=== PATIENT | female | born 2000 | race Caucasian/White ===

== ENCOUNTER 2019-02-07 13:53 | Inpatient (IN) | payer OTHER ==
[~2019-02-07] VITALS: Ht 157.5 cm; Wt 57.7 kg
[2019-02-07 14:58] LABS: BASOPHILS % (AUTO) 0.5 % (0.0-2.0); EOSINOPHILS % (AUTO) 0.8 % (1.0-6.0); HEMATOCRIT 39.8 % (36-46); HEMOGLOBIN 13.3 g/dL (12.0-16.0); LYMPHOCYTES # (AUTO) 1.7 K/uL (1.0-4.8); MEAN CORPUSCULAR HEMOGLOBIN 31.2 pg (26.0-34.0); MEAN CORPUSCULAR HGB CONC 33.5 G/dL (31.0-37.0); MEAN CORPUSCULAR VOLUME 93 fL (80-100); MONOCYTES # (AUTO) 0.4 K/uL (0.1-1.0); NEUTROPHILS # (AUTO) 4.1 K/uL (1.8-7.7); NEUTROPHILS % (AUTO) 64.7 % (40.0-70.0); PLATELET COUNT (AUTO) 198 K/uL (150-450); RED BLOOD CELL COUNT(AUTO) 4.27 MIL/uL (4.00-5.20); RED CELL DISTRIBUTION WIDTH 12.9 % (11.5-14.5)
[2019-02-07 15:12] LABS: ANION GAP 4 mmol/L (8-16); CALCIUM, TOTAL 9.1 mg/dL (8.8-10.5); CARBON DIOXIDE 32 mmol/L (22-29); CHLORIDE 105 mmol/L (98-107); GLOMERULAR FILTR. RATE CALC > 60 mL/min (>60); GLUCOSE,RANDOM 94 mg/dL (70-110); POTASSIUM 4.1 mmol/L (3.5-5.1); SODIUM SERUM 141 mmol/L (136-145); UREA NITROGEN, BLOOD 6 mg/dL (7-18)
[2019-02-07 15:16] LABS: ALANINE AMINOTRANSFERASE 15 U/L (12-78); ALKALINE PHOSPHATASE 66 U/L (46-116); ASPARTATE AMINOTRANSFERASE 17 U/L (15-37); BILIRUBIN,TOTAL 0.3 mg/dL (0.1-1.0); TOTAL PROTEIN, SERUM 7.7 g/dL (6.4-8.2)
[2019-02-07] MEDS ORDERED: GuaiFENesin/D-METHORPHAN [SUGAR-FREE] 200-20MG/10 ML SYRUP UDCUP PO PRN (16:15)
[2019-02-07] MEDS ORDERED: ACETAMINOPHEN 325 MG TABLET PO PRN (16:15)
[2019-02-07] MEDS ORDERED: ONDANSETRON HCL 4 MG TABLET PO PRN (16:15)
[2019-02-07] MEDS ORDERED: LOPERAMIDE HCL 2 MG CAPSULE PO PRN (16:15)
[2019-02-07] MEDS ORDERED: NICOTINE 14 MG/24 HOUR PATCH TD PRN (16:15)
[2019-02-07] MEDS ORDERED: PETROLATUM,WHITE 28 GM JELLY TP PRN (16:15)
[2019-02-07] MEDS ORDERED: CloNIDine HCL 0.1 MG TABLET PO PRN (16:15)
[2019-02-07] MEDS ORDERED: ALBUTEROL SULFATE HFA 90 MCG/PUFF 8 GM INHALER IH PRN (16:15)
[2019-02-07] MEDS ORDERED: MAG HYDROX/AL HYDROX/SIMETH ES 30 ML SUSPENSION UDCUP PO PRN (16:15)
[2019-02-07] MEDS ORDERED: IBUPROFEN 400 MG TABLET PO PRN (16:15)
[2019-02-07] MEDS ORDERED: MAGNESIUM HYDROXIDE SUSPENSION 30 ML UDCUP PO PRN (16:15)
[2019-02-07] MEDS ORDERED: DOCUSATE SODIUM 100 MG CAPSULE PO PRN (16:15)
[2019-02-07 18:35] VITALS: BP 116/75
[2019-02-07 19:36] VITALS: BP 112/67
[2019-02-07 22:46] LABS: AMPHET/METH SCREEN,URINE NEGATIVE (NEGATIVE); BARBITURATE SCREEN, URINE NEGATIVE (NEGATIVE); BENZODIAZEPINES SCREEN,URINE NEGATIVE (NEGATIVE); CANNABINOID SCREEN,URINE NEGATIVE (NEGATIVE); COCAINE SCREEN,URINE NEGATIVE (NEGATIVE); METHADONE SCREEN, URINE NEGATIVE (NEGATIVE); OPIATE SCREEN,URINE NEGATIVE (NEGATIVE)
[2019-02-07 22:47] LABS: PHENCYCLIDINE SCREEN,URINE NEGATIVE (NEGATIVE)
[2019-02-07 23:55] VITALS: BP 108/52
[2019-02-08 05:14] VITALS: BP 96/57
[2019-02-08 08:21] VITALS: BP 100/65
[2019-02-08] MEDS: SERTRALINE HCL 50 MG TABLET PO SCH (10:12)
[2019-02-08 11:28] VITALS: BP 109/62
[2019-02-08] MEDS: HydrOXYzine PAMOATE 25 MG CAPSULE PO PRN ×2 (12:38→21:59)
[2019-02-08 16:08] VITALS: BP 108/60
[2019-02-08 19:45] VITALS: BP 104/62
[2019-02-08 23:00] VITALS: BP 112/68
[2019-02-09 05:01] VITALS: BP 107/63
[2019-02-09] MEDS: SERTRALINE HCL 50 MG TABLET PO SCH (07:56)
[2019-02-09 08:27] VITALS: BP 110/63
[2019-02-09] MEDS ORDERED: SERTRALINE HCL 50 MG TABLET PO SCH (09:00)
[2019-02-09] MEDS: HydrOXYzine PAMOATE 25 MG CAPSULE PO PRN ×2 (09:43→20:08)
[2019-02-09] MEDS ORDERED: SERTRALINE HCL 50 MG TABLET PO ONE (10:15)
[2019-02-09 11:31] VITALS: BP 102/56
[2019-02-09 15:21] VITALS: BP 104/57
[2019-02-09 20:07] VITALS: BP 114/62
[2019-02-09 23:43] VITALS: BP 117/61
[2019-02-10 05:27] VITALS: BP 100/62
[2019-02-10] MEDS: SERTRALINE HCL 50 MG TABLET PO SCH (08:39)
[2019-02-10 09:03] VITALS: BP 113/69
[2019-02-10 11:19] VITALS: BP 115/68
[2019-02-10] MEDS: HydrOXYzine PAMOATE 25 MG CAPSULE PO PRN (12:09)
[2019-02-10 15:05] VITALS: BP 108/64
[2019-02-10 19:42] VITALS: BP 119/72
[2019-02-10 23:56] VITALS: BP 109/70
[2019-02-11 04:35] VITALS: BP 107/58
[2019-02-11 08:02] VITALS: BP 114/71
[2019-02-11] MEDS: SERTRALINE HCL 50 MG TABLET PO SCH (08:59)
[2019-02-11 12:59] VITALS: BP 113/58
[2019-02-11 15:31] VITALS: BP 99/55
[2019-02-11 19:42] VITALS: BP 122/61
[2019-02-11 23:34] VITALS: BP 122/73
[2019-02-12 04:45] VITALS: BP 120/71
[2019-02-12 07:45] VITALS: BP 111/58
[2019-02-12] MEDS: SERTRALINE HCL 50 MG TABLET PO SCH (08:21)
[2019-02-12] MEDS: HydrOXYzine PAMOATE 25 MG CAPSULE PO PRN ×2 (08:30→20:45)
[2019-02-12 11:11] VITALS: BP 107/66
[2019-02-12 15:20] VITALS: BP 106/63
[2019-02-12 20:52] VITALS: BP 107/65
[2019-02-13] VITALS (7 sets, daily range): BP systolic 107–115; BP diastolic 56–75
[2019-02-13] MEDS: SERTRALINE HCL 50 MG TABLET PO SCH (08:30)
[2019-02-13] MEDS: HydrOXYzine PAMOATE 25 MG CAPSULE PO PRN (08:33)
[2019-02-14 04:46] VITALS: BP 101/66
[2019-02-14 08:04] VITALS: BP 101/59
[2019-02-14] MEDS: SERTRALINE HCL 50 MG TABLET PO SCH (08:24)
[2019-02-14] MEDS: HydrOXYzine PAMOATE 25 MG CAPSULE PO PRN (08:32)
[2019-02-14] MEDS ORDERED: SERT50TA12 PO (10:30)
[2019-02-14 11:50] VITALS: BP 97/68
== END 2019-02-14 16:28 | DRG 885 ==
LOC: EMS 13:55 → 6S 16:36
PROVIDERS: ADMIT Internal Medicine; ATTEND Internal Medicine
DX: F33.2 Major depressive disorder, recurrent severe without psychotic features (principal); R45.851 Suicidal ideations; F17.210 Nicotine dependence, cigarettes, uncomplicated; F41.0 Panic disorder [episodic paroxysmal anxiety]; Z79.899 Other long term (current) drug therapy; Z91.5 Personal history of self-harm
CPT/HCPCS: G0480